=== PATIENT | male | born 1950 | race Native Hawaiian/Other Pacific Islander ===

== ENCOUNTER 2021-04-25 15:12 | Inpatient (IN) | payer MEDICARE ==
--- NOTE | 2021-04-25 15:21 | Emergency Department Report ---
Blank Doc - Documentation Documentation: 70-year-old male that presents with right-sided weakness with numbness sensation and slight facial drooping to the right side. Patient stated last known well time was 10 AM. 1- This is a initial triage assessment/medical screening only. Full assessment and work-up will be completed once the patient is in proper hospital gown, ED bed and in a private room setting. This initial assessment/diagnostic orders/clinical plan/ treatment(s) is/are subject to change based on pt's health status, clinical progression and re-assessment by fellow clinical providers in the ED. Further treatment and workup at subsequent clinical providers discretion. Patient/guardians urged not to elope from ED as their condition may be serious if not clinically assessed and managed. 2-stroke protocol initiated
--- NOTE | 2021-04-25 15:44 | Cat Scan Report ---
CT head/brain wo con INDICATION / CLINICAL INFORMATION: 70 years Male; CODE STROKE CALL [phone] . TECHNIQUE: Routine CT head without contrast. All CT scans at this location are performed using CT dos e reduction for ALARA by means of automated exposure control. COMPARISON: None. FINDINGS: BRAIN / INTRACRANIAL CONTENTS: Small lacunar infarct is seen in the lentiform nucleus on the left. Otherwise, no acute hemorrhage, mass effect, midline shift, hydrocephalus, or acute, large territori al infarct. No signs of significant atrophy or chronic infarct. No significant white matter abnormali ty seen. CRANIOCERVICAL JUNCTION: No significant abnormality. ORBITS: No significant abnormality of visualized orbits. SINUSES / MASTOIDS: Visualized paranasal sinuses and mastoid air cells are essentially clear. ADDITIONAL FINDINGS: None. IMPRESSION: 1. No focal mass, hemorrhage, hydrocephalus, or acute, large territorial infarct. CODE STROKE: Exam Completed (SUPERVISOR WHIPPED TOPPING/CDT): 04/25/2021 229 PM Exam Reviewed (SUPERVISOR WHIPPED TOPPING/CDT): 2:32 PM Time of Communication (SUPERVISOR WHIPPED TOPPING/CDT): 2:37 PM Licensed Practitioner Receiving Report: ROSEY De Jesus Signer Name: Morris Fontanez MD, III Signed: 04/25/2021 3:39 PM Workstation Name: [id number]
--- NOTE | 2021-04-25 15:50 | Event Note ---
Date: 04/25/21 Medical screening examination note: 70-year-old gentleman presenting with strokelike symptoms, including sensation of right-sided facial droop, right facial numbness, right arm numbness and right leg numbness. Last known well time 10:00 AM. Accu-Chek 401/appreciated. Noncontrast CT scan of the brain negative for acute findings. Patient awake, alert, oriented, with a GCS of 15. He will be seen shortly by stroke neurology, Dr. Dee Dee Ford We did discuss his history, physical, and overall clinical impression. CT angiogram head and neck is recommended. The patient is not a TPA candidate as he presents more than 4.5 hours after his last known well time.
[2021-04-25 16:11] LABS: Basophils % (Auto) 0.5 % (0.0-1.8); Eosinophils # (Auto) 0.1 K/mm3 (0.0-0.4); Eosinophils % (Auto) 1.8 % (0.0-4.3); Hematocrit 41.2 % (35.5-45.6); Hemoglobin 14.3 gm/dl (11.8-15.2); Lymphocytes # (Auto) 1.8 K/mm3 (1.2-5.4); Mean Corpuscular HGB Conc 35 % (32-34); Mean Corpuscular Volume 93 fl (84-94); Monocytes # (Auto) 0.6 K/mm3 (0.0-0.8); Monocytes % (Auto) 10.6 % (0.0-7.3); Platelet Count 182 K/mm3 (140-440); Red Blood Count 4.43 M/mm3 (3.65-5.03); Red Cell Distribution Width 13.4 % (13.2-15.2)
--- NOTE | 2021-04-25 16:18 | Emergency Department Report ---
ED Neuro Deficit HPI - General Chief Complaint: Neuro Symptoms/Deficit Stated Complaint: POSS STROKE Time Seen by Provider: 04/25/21 15:19 Source: patient Mode of arrival: Ambulatory Limitations: No Limitations - History of Present Illness Initial Comments: Patient is 70 years old male with history of hypertension and diabetes. Patient presented to the ER complaining of sudden onset of right facial droop right upper extremity numbness and right lower extremity weakness. Patient stated that symptoms started approximately 10 AM today. Patient stated that his symptom is much better now. Stroke protocol immediately initiated and patient moved to CT for stat CT brain without contrast. Telemetry neurology consulted and Dr. Anton, discussed the patient with Dr. Ford. Patient is not a TPA candidate however he recommended a CT angiogram of the brain and neck. Patient stated that initially his blood sugar was high and he thought this is from that. Patient denied any slurred speech, ataxia, chest pain, shortness of breath, nausea vomiting or headache. . -: Sudden, This morning Time: 10:00 Location: right face, right arm, right leg Presenting Symptoms: Present: Weak/Paralyzed One Side, Facial Droop/Numbness History of same: No Place: home Context: sudden onset Associated Symptoms: denies other symptoms ED Review of Systems ROS: Stated complaint: POSS STROKE Other details as noted in HPI Comment: All other systems reviewed and negative Constitutional: denies: chills, fever Respiratory: denies: cough, shortness of breath, SOB with exertion, SOB at rest Cardiovascular: denies: chest pain, palpitations Gastrointestinal: denies: abdominal pain, nausea, vomiting Genitourinary: denies: urgency, dysuria Musculoskeletal: denies: back pain Neurological: weakness, numbness. denies: headache, paresthesias, confusion, abnormal gait ED Neuro Physical Exam - General Limitations: No Limitations General appearance: alert, in no apparent distress Suspected Stroke: Yes - Head Head exam: Present: atraumatic, normocephalic, normal inspection - Eye Eye exam: Present: normal appearance, PERRL - ENT ENT exam: Present: normal exam, normal orophraynx, mucous membranes moist - Neck Neck exam: Present: normal inspection, full ROM. Absent: tenderness, meningismus - Respiratory Respiratory exam: Present: normal lung sounds bilaterally - Cardiovascular Cardiovascular Exam: Present: regular rate, normal rhythm, normal heart sounds - GI/Abdominal GI/Abdominal exam: Present: soft, normal bowel sounds. Absent: distended, tenderness, guarding, rebound, rigid, organomegaly, mass, bruit, pulsatile mass, hernia - Extremities Exam Extremities exam: Present: normal inspection, full ROM, normal capillary refill. Absent: tenderness, pedal edema, joint swelling, calf tenderness - Back Exam Back exam: Present: normal inspection, full ROM. Absent: CVA tenderness (R), CVA tenderness (L) - Neurological Exam Neurological exam: Present: alert, oriented X3 - NIHSS Assessment Interval: Baseline 1a. Level of Consciousness: alert/keenly responsive 1b. LOC Questions: answers both correctly 1c. LOC Commands: performs tasks correctly 2. Best Gaze: normal 3. Visual: no visual loss 4. Facial Palsy: minor paralysis 5b. Motor Arm Right: no drift 5a. Motor Arm Left: no drift 6a. Motor Leg Left: no drift 6b. Motor Leg Right: no drift 7. Limb Ataxia: absent 8. Sensory: mild/moderate sensory loss 9. Best Language: no aphasia 10. Dysarthria: normal 11. Extinction/Inattention: no abnormality Total Score: 2 Stroke Severity: Minor Stroke - Psychiatric Psychiatric exam: Present: normal mood - Skin Skin exam: Present: warm, intact, normal color ED Course Vital Signs 04/25/21 04/25/21 04/25/21 15:23 15:45 16:01 Temperature 98.8 F Pulse Rate 86 82 80 Respiratory 18 15 14 Rate Blood Pressure 167/90 Blood Pressure 196/103 [Left] O2 Sat by Pulse 96 96 98 Oximetry 04/25/21 04/25/21 04/25/21 16:15 16:31 16:45 Temperature Pulse Rate 82 Respiratory 20 Rate Blood Pressure 172/74 161/89 145/94 Blood Pressure [Left] O2 Sat by Pulse 90 96 97 Oximetry 04/25/21 04/25/21 17:01 17:15 Temperature Pulse Rate Respiratory Rate Blood Pressure 152/84 164/86 Blood Pressure [Left] O2 Sat by Pulse 95 93 Oximetry - Lab Data Result diagrams: 04/25/21 15:40 04/25/21 15:40 Lab Results 04/25/21 04/25/21 04/25/21 Range/Units 15:18 15:40 15:40 WBC 5.4 (4.5-11.0) K/mm3 RBC 4.43 (3.65-5.03) M/mm3 Hgb 14.3 (11.8-15.2) gm/dl Hct 41.2 (35.5-45.6) % MCV 93 (84-94) fl MCH 32 (28-32) pg MCHC 35 H (32-34) % RDW 13.4 (13.2-15.2) % Plt Count 182 (140-440) K/mm3 Lymph % (Auto) 33.0 (13.4-35.0) % Caswell % (Auto) 10.6 H (0.0-7.3) % Eos % (Auto) 1.8 (0.0-4.3) % Baso % (Auto) 0.5 (0.0-1.8) % Lymph # (Auto) 1.8 (1.2-5.4) K/mm3 Caswell # (Auto) 0.6 (0.0-0.8) K/mm3 Eos # (Auto) 0.1 (0.0-0.4) K/mm3 Baso # (Auto) 0.0 (0.0-0.1) K/mm3 Seg Neutrophils % 54.1 (40.0-70.0) % Seg Neutrophils # 2.9 (1.8-7.7) K/mm3 PT 12.1 L (12.2-14.9) Sec. INR 0.85 L (0.87-1.13) APTT 28.3 (24.2-36.6) Sec. Thrombin Time 18.5 (15.1-19.6) Sec. Sodium (137-145) mmol/L Potassium (3.6-5.0) mmol/L Chloride (98-107) mmol/L Carbon Dioxide (22-30) mmol/L Anion Gap mmol/L BUN (9-20) mg/dL Creatinine (0.8-1.3) mg/dL Estimated GFR ml/min BUN/Creatinine Ratio % Glucose (75-100) mg/dL POC Glucose 401 H (70-105) mg/dL Calcium (8.4-10.2) mg/dL Magnesium (1.7-2.3) mg/dL Total Bilirubin (0.1-1.2) mg/dL AST (5-40) units/L ALT (7-56) units/L Alkaline Phosphatase (35-129) units/L Total Creatine Kinase (55-170) units/L CK-MB (CK-2) (0.0-4.0) ng/mL CK-MB (CK-2) Rel Index (0-4) Troponin T (0.00-0.029) ng/mL Total Protein (6.3-8.2) g/dL Albumin (3.9-5) g/dL Albumin/Globulin Ratio % Plasma/Serum Alcohol (0-0.07) % 04/25/21 04/25/21 Range/Units 15:40 15:40 WBC (4.5-11.0) K/mm3 RBC (3.65-5.03) M/mm3 Hgb (11.8-15.2) gm/dl Hct (35.5-45.6) % MCV (84-94) fl MCH (28-32) pg MCHC (32-34) % RDW (13.2-15.2) % Plt Count (140-440) K/mm3 Lymph % (Auto) (13.4-35.0) % Caswell % (Auto) (0.0-7.3) % Eos % (Auto) (0.0-4.3) % Baso % (Auto) (0.0-1.8) % Lymph # (Auto) (1.2-5.4) K/mm3 Caswell # (Auto) (0.0-0.8) K/mm3 Eos # (Auto) (0.0-0.4) K/mm3 Baso # (Auto) (0.0-0.1) K/mm3 Seg Neutrophils % (40.0-70.0) % Seg Neutrophils # (1.8-7.7) K/mm3 PT (12.2-14.9) Sec. INR (0.87-1.13) APTT (24.2-36.6) Sec. Thrombin Time (15.1-19.6) Sec. Sodium 135 L (137-145) mmol/L Potassium 4.3 (3.6-5.0) mmol/L Chloride 99.1 (98-107) mmol/L Carbon Dioxide 27 (22-30) mmol/L Anion Gap 13 mmol/L BUN 11 (9-20) mg/dL Creatinine 0.6 L (0.8-1.3) mg/dL Estimated GFR > 60 ml/min BUN/Creatinine Ratio 18 % Glucose 424 H (75-100) mg/dL POC Glucose (70-105) mg/dL Calcium 8.9 (8.4-10.2) mg/dL Magnesium 2.20 (1.7-2.3) mg/dL Total Bilirubin 0.50 (0.1-1.2) mg/dL AST 11 (5-40) units/L ALT 15 (7-56) units/L Alkaline Phosphatase 168 H (35-129) units/L Total Creatine Kinase 91 (55-170) units/L CK-MB (CK-2) 1.2 (0.0-4.0) ng/mL CK-MB (CK-2) Rel Index 1.3 (0-4) Troponin T < 0.010 (0.00-0.029) ng/mL Total Protein 7.1 (6.3-8.2) g/dL Albumin 4.1 (3.9-5) g/dL Albumin/Globulin Ratio 1.4 % Plasma/Serum Alcohol < 0.01 (0-0.07) % - EKG Data -: EKG Interpreted by Me Interpretation: no acute changes - Radiology Data Radiology results: report reviewed - Medical Decision Making Patient is 70 years old male with history of hypertension and diabetes. Patient presented to the ER complaining of sudden onset of right facial droop right upper extremity numbness and right lower extremity weakness. Patient stated that symptoms started approximately 10 AM today. Patient stated that his symp ronel is much better now. Stroke protocol immediately initiated and patient moved to CT for stat CT brain without contrast. Telemetry neurology consulted and Dr. Anton, discussed the patient with Dr. Ford. Patient is not a TPA candidate however he recommended a CT angiogram of the brain and neck. Patient stated that initially his blood sugar was high and he thought this is from that. Patient denied any slurred speech, ataxia, chest pain, shortness of breath, nausea vomiting or headache. CTA neck and brain showed no evidence of large vessels occlusion. I discussed the patient with Dr. Enrique, he agreed to admit the patient to medical service for further management. Critical Care Time: Yes Critical care time in (mins) excluding proc time.: 30 Critical care attestation.: If time is entered above; I have spent that time in minutes in the direct care of this critically ill patient, excluding procedure time. ED Disposition Clinical Impression: Acute CVA (cerebrovascular accident) Disposition: -09 OP ADMIT IP TO THIS HOSP Is pt being admited?: Yes Condition: Stable
[2021-04-25 16:26] LABS: INR 0.85 (0.87-1.13); Partial Thromboplastin Time 28.3 Sec. (24.2-36.6); Thrombin Time 18.5 Sec. (15.1-19.6)
[2021-04-25 16:36] LABS: Alanine Aminotransferase 15 units/L (7-56); Albumin 4.1 g/dL (3.9-5); Blood Urea Nitrogen 11 mg/dL (9-20); Calcium 8.9 mg/dL (8.4-10.2); Creatine Kinase MB 1.2 ng/mL (0.0-4.0); Hemolysis Index 8
[2021-04-25 16:38] LABS: BUN/Creatinine Ratio 18
--- NOTE | 2021-04-25 16:54 | Consultation ---
Medications and Allergies Active Meds: Active Medications Insulin Human Regular (Insulin Regular, Human 100 Units/1 Ml) 5 units IV ONCE ONE Stop: 04/25/21 16:39 Physical Examination - Vital Signs Vital Signs: Vital Signs Temp Pulse Resp BP Pulse Ox 98.8 F 86 18 196/103 96 04/25/21 15:23 04/25/21 15:23 04/25/21 15:23 04/25/21 15:23 04/25/21 15:23 Results - Laboratory Findings CBC and BMP: 04/25/21 15:40 04/25/21 15:40 Abnormal Lab Findings: Abnormal Labs 04/25/21 04/25/21 04/25/21 15:18 15:40 15:40 MCHC 35 H Archer % (Auto) 10.6 H PT 12.1 L INR 0.85 L Sodium Creatinine Glucose POC Glucose 401 H Alkaline Phosphatase 04/25/21 15:40 MCHC Archer % (Auto) PT INR Sodium 135 L Creatinine 0.6 L Glucose 424 H POC Glucose Alkaline Phosphatase 168 H Assessment and Plan [facility] Consult Note # Demographics Consult Type: Acute Stroke Level 2 (4.5-24 hrs) Patient Location: Emergency Room First Name: Danny Last Name: Oliiva Date of : 1950 Age: 70 Gender: Male Time of Initial Page ( Time): 04/25/2021, 15:27 Time of Return Call ( Time): 04/25/2021, 15:39 # HPI History: 70 yo man with history of untreated DM presents with right sided numbness and weakness affecting face, hand, leg starting around 10:00 this morning. Symptoms have improved but not entirely resolved. Last Known Normal: I have collected independent history specific to time last normal or last known well. We have collaborated with the provider and at this time, we have the most current timeline with the information that is available. 10:00 # Scores Time of exam and NIHSS ( Time): 04/25/2021, 16:31 Level of Consciousness 1a: [0] = Alert; keenly responsive LOC Questions 1b: [0] = Answers both questions correctly LOC Commands 1c: [0] = Performs both tasks correctly Best Gaze 2: [0] = Normal Visual 3: [0] = No visual loss Facial Palsy 4: [1] = Minor paralysis Motor Arm Left 5a: [0] = No drift Motor Arm Right 5b: [0] = No drift Motor Leg Left 6a: [0] = No drift Motor Leg Right 6b: [0] = No drift Limb Ataxia 7: [0] = Absent Sensory 8: [1] = [id number]-cv-[id number] sensory loss Best Language 9: [0] = No aphasia Dysarthria 10: [1] = Gubx-qr-qbopwpax dysarthria Extinction and Inattention 11: [0] = No abnormality NIHSS Total: 3 # Exam SBP: 161 DBP: 89 # PMH-FH-SH Past Medical History: Diabetes Social History: non-smoker non-drinker Medications: denies Allergies: NKDA # Data Head CT: no bleed small lacunar infarct # Assessment Impression: Right sided numbness and weakness consistent with ischemic stroke. Given time of onset > 4.5 hours ago he is not a candidate for IV tpa. # Plan Thrombolytic/Intervention: NOT IV Thrombolytic or IA Intervention Thrombolytic Exclusion: > 4.5 hours Intraarterial Exclusion: other Symptoms not suggestive of LVO Target Blood Pressure: SBP < 220 Labs: hemoglobin A1c lipid panel Imaging: (urgency: routine): CT Angiogram Head and CT Angiogram Neck MRI Brain without contrast Diagnostic Test: echo with bubble study Therapy/Evaluation: NPO until swallow evaluation PT/OT evaluation speech/swallow consultation Medication: aspirin 81 mg daily clopidogrel (Plavix) 75 mg daily aspirin 81 mg PLUS clopidogrel (Plavix) 75 mg for 21 days, then monotherapy therafter DVT Prophylaxis: SCD Other: LDL < 70 permissive hypertension telemetry monitoring I have discussed my recommendations with the referring provider Disposition: admit # Logistics Telemedicine: Interactive 2 way audio and visual telecommunication technology was utilized during this visit
--- NOTE | 2021-04-25 18:32 | Cat Scan Report ---
CTA NECK WITH CONTRAST 04/25/2021 INDICATION / CLINICAL INFORMATION: Acute stroke, right-sided facial numbness, right a 100 ml omni 350 . COMPARISON: None. TECHNIQUE: Routine CTA of the neck is performed. 3-D/MIP reformats were postprocessed. Percentage st enosis is determined by direct quantitative measurements of diseased internal carotid artery diameter compared with normal distal internal carotid artery reference segments or by criteria similar to QUE CET where applicable. All CT scans at this location are performed using CT dose reduction for ALARA b y means of automated exposure control. CONTRAST: 100 ml of Omnipaque 350 FINDINGS: Carotid bifurcations: Atherosclerotic vascular calcifications are associated with the carotid bifurca tions, left greater than right. There may be tendon 20% narrowing of the left proximal ICA. The right is unremarkable. Carotid arteries: No significant abnormality. Cervical vertebral arteries: No significant abnormality. Aortic arch: No significant abnormality. None. IMPRESSION: No significant abnormality. Signer Name: Doe Luciano MD Signed: 04/25/2021 6:28 PM Workstation Name: [id number]
--- NOTE | 2021-04-25 18:36 | Cat Scan Report ---
CTA HEAD WITH CONTRAST 04/25/2021 HISTORY: Acute stroke, right-sided facial numbness, right a 100ml omni 350 . COMPARISON: None. TECHNIQUE: All CT scans at this location are performed using CT dose reduction for ALARA by means of automated exposure control.. 3-D/MIP reformats postprocessed. Percentage stenosis is determined by d irect quantitative measurements of diseased internal carotid artery diameter compared with normal dis mahad internal carotid artery reference segments or by criteria similar to NASCET where applicable. CONTRAST: 100 ml of Omnipaque 350 FINDINGS: CTA HEAD: Intracranial vertebral arteries: There is prominent atherosclerotic irregularity associated with the distal left vertebral artery, which is either congenitally hypoplastic or occluded at or near the lev el of the origin of the posterior inferior cerebellar artery. Basilar artery: Mild atherosclerotic irregularity. Posterior cerebral arteries: Mild to moderate atherosclerotic irregularity. Intracranial internal carotid arteries: Atherosclerotic calcification with no evidence of occlusion. Moderate segmental stenosis. Anterior cerebral arteries: No significant abnormality. Middle cerebral arteries: Atherosclerotic irregularity and narrowing of the left middle cerebral milla ry and its proximal branches. There is also evidence of high-grade stenosis or partial occlusion of o ne of the right middle cerebral artery M1 branches. Dural venous sinuses:Not optimally opacified. No significant abnormality. Additional findings: None. IMPRESSION: 1. Intracranial atherosclerotic changes as described above, involving MCA branches as well as distal left vertebral artery. Signer Name: Doe Luciano MD Signed: 04/25/2021 6:32 PM Workstation Name: [id number]
--- NOTE | 2021-04-25 18:52 | History and Physical Report ---
History of Present Illness Chief complaint: I feel weak on my right side History of present illness: 70 YO Male with DM, HTN presents to ED for evaluation. Patient reports "I feel weak on the right side". Patient states that he was in his usual state of health at bedtime around 2200 hrs. Patient reports that shortly after awakening from sleep this morning 1800 hrs. he experienced new onset right-sided facial droop, right arm and leg weakness. Patient transported to [facility] via private vehicle for further care and evaluation of the aforementioned symptoms. The patient was seen and evaluated in the emergency department. All lab and imaging studies reviewed. Patient was found to have a neurologic deficit. A code stroke was called. The patient was seen and evaluated and was found to have clinical symptoms consistent with CVA. The patient was placed in observation status and admitted to telemetry for further care and evaluation. Teleneurology was consulted in ED. Patient denies fever, chills, chest pain, palpitation, productive cough, skin rash, recent ill contacts, or known exposure to COVID-19. No prior admission for review. No medication listed for reconciliation at the time of admission. Advanced care planning conducted in ED. Past History Past Medical History: diabetes, hypertension Past Surgical History: No surgical history, Other (Reviewed) Social history: , lives with family Family history: hypertension Medications and Allergies Active Meds: Active Medications Insulin Human Regular (Insulin Regular, Human 100 Units/1 Ml) 5 units IV ONCE ONE Stop: 04/25/21 16:39 Review of Systems Constitutional: no weight loss, no weight gain, no fever, no sweats Ears, nose, mouth and throat: no ear pain, no ear discharge, no nasal discharge Cardiovascular: no chest pain, no orthopnea, no palpitations, no rapid/irregular heart beat, no edema, no syncope, no shortness of breath Respiratory: no cough, no cough with sputum, no excessive sputum, no hemoptysis, no dyspnea on exertion Gastrointestinal: no abdominal pain, no nausea, no vomiting, no diarrhea, no constipation Genitourinary Male: no hematuria, no flank pain, no discharge, no urinary frequency, no urinary hesitancy Rectal: no pain, no incontinence, no bleeding Musculoskeletal: no neck stiffness, no neck pain, no shooting arm pain, no low back pain, no leg numbness/tingling, no redness of joints Integumentary: no rash, no pruritis, no redness, no sores, no wounds Neurological: numbness, lack of coordination, change in speech, gait dysfunction, motor disturbance, no head injury, no transient paralysis, no vertigo, no headaches, no migraines Psychiatric: no anxiety, no memory loss, no change in sleep habits, no sleep disturbances, no insomnia, no hypersomnia, no change in libido Endocrine: no cold intolerance, no heat intolerance, no polyphagia, no excessive thirst, no polyuria Hematologic/Lymphatic: no easy bruising, no easy bleeding, no lymphedema Allergic/Immunologic: no urticaria, no allergic rhinitis, no anaphylaxis Exam - Constitutional Vitals: Temp Pulse Resp BP Pulse Ox 98.8 F 82 20 164/86 93 04/25/21 15:23 04/25/21 16:15 04/25/21 16:15 04/25/21 17:15 04/25/21 17:15 General appearance: Present: mild distress - EENT Eyes: Present: PERRL ENT: hearing intact, clear oral mucosa - Neck Neck: Present: supple, normal ROM - Respiratory Respiratory effort: normal Respiratory: bilateral: CTA - Cardiovascular Heart Sounds: Present: S1 & S2. Absent: rub, click - Extremities Extremities: pulses symmetrical, No edema Peripheral Pulses: within normal limits - Abdominal General gastrointestinal: Present: soft, non-tender, non-distended, normal bowel sounds Male genitourinary: Present: normal - Integumentary Integumentary: Present: clear, warm, dry - Musculoskeletal Musculoskeletal: right sided weakness - Psychiatric Psychiatric: appropriate mood/affect, intact judgment & insight - Neurologic Neurologic: no CNII-XII intact, focal deficits, moves all extremities, no gait normal HEART Score - HEART Score Troponin: Troponin T < 0.010 ng/mL (0.00-0.029) 04/25/21 15:40 Results - Labs CBC & Chem 7: 04/25/21 15:40 04/25/21 15:40 Labs: Abnormal lab results 04/25/21 04/25/21 04/25/21 Range/Units 15:18 15:40 15:40 MCHC 35 H (32-34) % [place] % (Auto) 10.6 H (0.0-7.3) % PT 12.1 L (12.2-14.9) Sec. INR 0.85 L (0.87-1.13) Sodium (137-145) mmol/L Creatinine (0.8-1.3) mg/dL Glucose (75-100) mg/dL POC Glucose 401 H (70-105) mg/dL Alkaline Phosphatase (35-129) units/L /04/10 Range/Units 15:40 MCHC (32-34) % [place] % (Auto) (0.0-7.3) % PT (12.2-14.9) Sec. INR (0.87-1.13) Sodium 135 L (137-145) mmol/L Creatinine 0.6 L (0.8-1.3) mg/dL Glucose 424 H (75-100) mg/dL POC Glucose (70-105) mg/dL Alkaline Phosphatase 168 H (35-129) units/L Assessment and Plan - Patient Problems (1) CVA (cerebral vascular accident) Current Visit: Yes Status: Acute Plan to address problem: CVA protocol: CT head, neuro check, seizure precautions, aspiration precautions, fall precautions, lipid panel, antiplatelet therapy, telemetry neurology con sulted in the emergency department., Statin therapy, carotid Doppler, echocardiogram, (2) HTN (hypertension) Current Visit: Yes Status: Acute Qualifiers: Hypertension type: primary hypertension Qualified Code(s): I10 - Essential (primary) hypertension Plan to address problem: Monitor blood pressure every shift, permissive hypertension overnight (3) Diabetes Current Visit: Yes Status: Acute Plan to address problem: Consistent carbohydrate diet after patient has demonstrated ability to swallow, sliding scale insulin, Accu-Chek, hypoglycemia protocol. (4) DVT prophylaxis Current Visit: Yes Status: Acute Plan to address problem: SCD to bilateral lower extremities while in bed, patient is ambulatory (5) Advance care planning Current Visit: Yes Status: Acute Plan to address problem: Disease education conducted, care plan discussed, diagnosis discussed, prognosis discussed, patient is full code, patient knowledges understanding and agree with care plan, +30 minutes.
[2021-04-25] MEDS ORDERED: METOCLOPRAMIDE 10 MG TAB PO PRN (20:00)
[2021-04-25] MEDS ORDERED: INSULIN REGULAR, HUMAN 100 UNITS/1 ML IV ONE (20:00)
[2021-04-25] MEDS ORDERED: MAGNESIUM HYDROXIDE (MOM) ORAL LIQD UDC PO PRN (20:00)
[2021-04-25] MEDS ORDERED: MORPHINE 4 MG/1 ML INJ IV PRN (20:00)
[2021-04-25] MEDS ORDERED: PROMETHAZINE 25 MG RECT SUPP PR PRN (20:00)
[2021-04-25] MEDS ORDERED: ONDANSETRON 4 MG/2 ML INJ IV PRN (20:00)
[2021-04-25] MEDS ORDERED: ACETAMINOPHEN 325 MG TAB PO PRN (20:00)
--- NOTE | 2021-04-26 09:04 | Progress Note ---
Assessment and Plan Assessment and plan: Acute CVA/TIA Hypertension Diabetes mellitus type 2 DVT prophylaxis 04/26/2021. Pt with Right sided numbness and weakness consistent with ischemic stroke. Given time of onset > 4.5 hours ago he was not a candidate for IV tpa. F/U Echocardiogram, Carotid Duplex, MRI and Neuro consult. PT/OT/ST. History Interval history: No new issues overnight Hospitalist Physical - Constitutional Vitals: Temp Pulse Resp BP Pulse Ox 98.1 F 75 18 160/80 95 04/26/21 07:47 04/26/21 07:47 04/26/21 07:47 04/26/21 07:47 04/26/21 07:47 General appearance: Present: mild distress - EENT Eyes: Present: PERRL, EOM intact ENT: hearing intact, clear oral mucosa, dentition normal - Neck Neck: Present: supple, normal ROM - Respiratory Respiratory effort: normal Respiratory: bilateral: CTA - Cardiovascular Rhythm: regular Heart Sounds: Present: S1 & S2. Absent: gallop, rub - Extremities Extremities: no ischemia, No edema, Full ROM - Abdominal General gastrointestinal: soft, non-tender, non-distended, normal bowel sounds - Integumentary Integumentary: Present: clear, warm, dry - Neurologic Neurologic: CNII-XII intact, moves all extremities HEART Score - HEART Score Troponin: Troponin T < 0.010 ng/mL (0.00-0.029) 04/25/21 15:40 Results - Labs CBC & Chem 7: 04/25/21 15:40 04/25/21 15:40 Labs: Laboratory Last Values WBC 5.4 K/mm3 (4.5-11.0) 04/25/21 15:40 RBC 4.43 M/mm3 (3.65-5.03) 04/25/21 15:40 Hgb 14.3 gm/dl (11.8-15.2) 04/25/21 15:40 Hct 41.2 % (35.5-45.6) 04/25/21 15:40 MCV 93 fl (84-94) 04/25/21 15:40 MCH 32 pg (28-32) 04/25/21 15:40 MCHC 35 % (32-34) H 04/25/21 15:40 RDW 13.4 % (13.2-15.2) 04/25/21 15:40 Plt Count 182 K/mm3 (140-440) 04/25/21 15:40 Lymph % (Auto) 33.0 % (13.4-35.0) 04/25/21 15:40 [place] % (Auto) 10.6 % (0.0-7.3) H 04/25/21 15:40 Eos % (Auto) 1.8 % (0.0-4.3) 04/25/21 15:40 Baso % (Auto) 0.5 % (0.0-1.8) 04/25/21 15:40 Lymph # (Auto) 1.8 K/mm3 (1.2-5.4) 04/25/21 15:40 [place] # (Auto) 0.6 K/mm3 (0.0-0.8) 04/25/21 15:40 Eos # (Auto) 0.1 K/mm3 (0.0-0.4) 04/25/21 15:40 Baso # (Auto) 0.0 K/mm3 (0.0-0.1) 04/25/21 15:40 Seg Neutrophils % 54.1 % (40.0-70.0) 04/25/21 15:40 Seg Neutrophils # 2.9 K/mm3 (1.8-7.7) 04/25/21 15:40 PT 12.1 Sec. (12.2-14.9) L 04/25/21 15:40 INR 0.85 (0.87-1.13) L 04/25/21 15:40 APTT 28.3 Sec. (24.2-36.6) 04/25/21 15:40 Thrombin Time 18.5 Sec. (15.1-19.6) 04/25/21 15:40 Sodium 135 mmol/L (137-145) L 04/25/21 15:40 Potassium 4.3 mmol/L (3.6-5.0) 04/25/21 15:40 Chloride 99.1 mmol/L (98-107) 04/25/21 15:40 Carbon Dioxide 27 mmol/L (22-30) 04/25/21 15:40 Anion Gap 13 mmol/L 04/25/21 15:40 BUN 11 mg/dL (9-20) 04/25/21 15:40 Creatinine 0.6 mg/dL (0.8-1.3) L 04/25/21 15:40 Estimated GFR > 60 ml/min 04/25/21 15:40 BUN/Creatinine Ratio 18 % 04/25/21 15:40 Glucose 424 mg/dL (75-100) H 04/25/21 15:40 POC Glucose 281 mg/dL (70-105) H 04/26/21 07:46 Calcium 8.9 mg/dL (8.4-10.2) 04/25/21 15:40 Magnesium 2.20 mg/dL (1.7-2.3) 04/25/21 15:40 Total Bilirubin 0.50 mg/dL (0.1-1.2) 04/25/21 15:40 AST 11 units/L (5-40) 04/25/21 15:40 ALT 15 units/L (7-56) 04/25/21 15:40 Alkaline Phosphatase 168 units/L (35-129) H 04/25/21 15:40 Total Creatine Kinase 91 units/L (55-170) 04/25/21 15:40 CK-MB (CK-2) 1.2 ng/mL (0.0-4.0) 04/25/21 15:40 CK-MB (CK-2) Rel Index 1.3 (0-4) 04/25/21 15:40 Troponin T < 0.010 ng/mL (0.00-0.029) 04/25/21 15:40 Total Protein 7.1 g/dL (6.3-8.2) 04/25/21 15:40 Albumin 4.1 g/dL (3.9-5) 04/25/21 15:40 Albumin/Globulin Ratio 1.4 % 04/25/21 15:40 Plasma/Serum Alcohol < 0.01 % (0-0.07) 04/25/21 15:40 Herrera/IV: Voiding Method Urinal Active Medications - Current Medications Current Medications: Generic Name Dose Route Start Last Admin Trade Name Freq PRN Reason Stop Dose Admin Acetaminophen 650 mg 04/25/21 20:00 Acetaminophen 325 Mg Tab PO Q4H PRN Pain, Mild (1-3) Atorvastatin Calcium 40 mg 04/25/21 22:00 04/25/21 22:15 Atorvastatin 40 Mg Tab PO 40 mg QHS LILLIAN Administration Bisacodyl 10 mg 04/25/21 20:00 Bisacodyl 10 Mg Rect Supp VT QDAY PRN Constipation Magnesium Hydroxide 30 ml 04/25/21 20:00 Magnesium Hydroxide (Mom) Oral Liqd Udc PO Q4H PRN Constipation Metoclopramide HCl 10 mg 04/25/21 20:00 Metoclopramide 10 Mg Tab PO Q6H PRN Nausea And Vomiting Morphine Sulfate 1 mg 04/25/21 20:00 Morphine 4 Mg/1 Ml Inj IV Q8H PRN Pain , Severe (7-10) Ondansetron HCl 4 mg 04/25/21 20:00 Ondansetron 4 Mg/2 Ml Inj IV Q8H PRN Nausea And Vomiting Oxycodone/Acetaminophen 1 tab 04/25/21 20:00 Oxycodone /Acetaminophen 5-325mg Tab PO Q6H PRN Pain, Moderate (4-6) Promethazine HCl 25 mg 04/25/21 20:00 Promethazine 25 Mg Rect Supp VT Q6H PRN Nausea And Vomiting Sodium Chloride 10 ml 04/25/21 20:00 Sodium Chloride 0.9% 10 Ml Flush Syringe IV PRN PRN LINE FLUSH
--- NOTE | 2021-04-26 09:25 | Consultation ---
History of Present Illness Consult date: 04/26/21 Reason for Consult: right side weakness History of present illness: I feel weak on my right side History of present illness: 70 YO Male with DM, HTN presents to ED for evaluation. Patient reports "I feel weak on the right side". Patient states that he was in his usual state of health at bedtime around 2200 hrs04/24/2021 . Patient reports that shortly after awakening from sleep this morning at 10 am he felt weak right side . Patient transported to [facility] via private vehicle for further care and evaluation of the af orementioned symptoms. The patient was seen and evaluated in the emergency department around 4.30 pm on 04/25/2021 by tele neurology his INH was #3 All lab and imaging studies reviewed. Patient was found to have right side weakness involve arm and leg with facial droop as well as sensory impairment and slurrend speech , A code stroke was called. Patient denies fever, chills, chest pain, palpitation, productive cough, skin rash, recent ill contacts, or known exposure to COVID-19. No prior admission for review. No medication listed for reconciliation at the time of admission. Advanced care planning conducted in ED. -Ct brain was unremarkable - he was started on ASA and lipitor -Initial BP #190/82 CTA brain and neck are remarkable for mild astherosclerotic changes in both MCA and distal vertebral a. pt. is not felt to be a candidate for TPA nor thrombectomy Past History Past Medical History: diabetes, hypertension Past Surgical History: No surgical history, Other (Reviewed) Social history: , lives with family Family history: hypertension Medications and Allergies Active Meds: Active Medications Insulin Human Regular (Insulin Regular, Human 100 Units/1 Ml) 5 units IV ONCE ONE Stop: 04/25/21 16:39 Review of Systems Constitutional: no weight loss, no weight gain, no fever, no sweats Ears, nose, mouth and throat: no ear pain, no ear discharge, no nasal discharge Cardiovascular: no chest pain, no orthopnea, no palpitations, no rapid/irregular heart beat, no edema, no syncope, no shortness of breath Respiratory: no cough, no cough with sputum, no excessive sputum, no hemoptysis, no dyspnea on exertion Gastrointestinal: no abdominal pain, no nausea, no vomiting, no diarrhea, no constipation Genitourinary Male: no hematuria, no flank pain, no discharge, no urinary frequency, no urinary hesitancy Rectal: no pain, no incontinence, no bleeding Musculoskeletal: no neck stiffness, no neck pain, no shooting arm pain, no low back pain, no leg numbness/tingling, no redness of joints Integumentary: no rash, no pruritis, no redness, no sores, no wounds Neurological: numbness, lack of coordination, change in speech, gait dysfunction, motor disturbance, no head injury, no transient paralysis, no vertigo, no headaches, no migraines Psychiatric: no anxiety, no memory loss, no change in sleep habits, no sleep disturbances, no insomnia, no hypersomnia, no change in libido Endocrine: no cold intolerance, no heat intolerance, no polyphagia, no excessive thirst, no polyuria Hematologic/Lymphatic: no easy bruising, no easy bleeding, no lymphedema Allergic/Immunologic: no urticaria, no allergic rhinitis, no anaphylaxis Past History Past Medical History: diabetes, hypertension Past Surgical History: No surgical history, Other (Reviewed) Social history: , lives with family Family history: hypertension Medications and Allergies Allergies Allergy/AdvReac Type Severity Reaction Status Date / Time No Known Allergies Allergy Unverified 04/25/21 19:04 Home Medications Medication Instructions Recorded Confirmed Last Taken Type No Known Home Medications [No 04/25/21 04/25/21 Unknown History Reported Home Medications] Active Meds: Active Medications Acetaminophen (Acetaminophen 325 Mg Tab) 650 mg PO Q4H PRN PRN Reason: Pain, Mild (1-3) Atorvastatin Calcium (Atorvastatin 40 Mg Tab) 40 mg PO QHS LILLIAN Last Admin: 04/25/21 22:15 Dose: 40 mg Documented by: Bisacodyl (Bisacodyl 10 Mg Rect Supp) 10 mg NC QDAY PRN PRN Reason: Constipation Magnesium Hydroxide (Magnesium Hydroxide (Mom) Oral Liqd Udc) 30 ml PO Q4H PRN PRN Reason: Constipation Metoclopramide HCl (Metoclopramide 10 Mg Tab) 10 mg PO Q6H PRN PRN Reason: Nausea And Vomiting Morphine Sulfate (Morphine 4 Mg/1 Ml Inj) 1 mg IV Q8H PRN PRN Reason: Pain , Severe (7-10) Ondansetron HCl (Ondansetron 4 Mg/2 Ml Inj) 4 mg IV Q8H PRN PRN Reason: Nausea And Vomiting Oxycodone/Acetaminophen (Oxycodone /Acetaminophen 5-325mg Tab) 1 tab PO Q6H PRN PRN Reason: Pain, Moderate (4-6) Promethazine HCl (Promethazine 25 Mg Rect Supp) 25 mg NC Q6H PRN PRN Reason: Nausea And Vomiting Sodium Chloride (Sodium Chloride 0.9% 10 Ml Flush Syringe) 10 ml IV PRN PRN PRN Reason: LINE FLUSH Physical Examination - Vital Signs Vital Signs: Vital Signs Temp Pulse Resp BP Pulse Ox 98.8 F 86 18 196/103 96 04/25/21 15:23 04/25/21 15:23 04/25/21 15:23 04/25/21 15:23 04/25/21 15:23 - Constitutional General appearance: comfortable - EENT EENT: Present: PERRL, mucous membranes moist - Respiratory Respiratory: Present: chest non-tender, lungs clear, rhonchi - Cardiovascular Cardiovascular: Present: regular rate, normal S1, normal S2 Extremities: Present: no peripheral edema bilatateraly, no clubbing, cyanosis - Gastrointestinal Gastrointestinal: Present: normoactive bowel sounds - Integumentary Integumentary: Present: normal - Neurologic Cranial nerve examination: PERRL, EOMI, other (right facail droop no visual deficit ,EOMI , facial sensation intact ) Speech examination: other (slightly slurred speech ) Sensorimotor examination: other (right side weakness upper and lower 4-/5 with slight sensory impairment upper and lower ,gait not done) - Level of Consciousness 1a. Level of Consciousness: alert/keenly responsive - LOC Questions 1b. LOC Questions: answers both correctly - LOC Command 1c. LOC Commands: performs tasks correctly - Best Gaze 2. Best Gaze: normal - Visual 3. Visual: no visual loss - Facial Palsy 4. Facial Palsy: partial paralysis - Motor Arm 5a. Motor Arm Left: no drift 5b. Motor Arm Right: drift - Motor Leg 6a. Motor Leg Left: no drift 6b. Motor Leg Right: drift - Limb Ataxia 7. Limb Ataxia: present 1 limb - Sensory 8. Sensory: mild/moderate sensory loss - Best Language 9. Best Language: no aphasia - Dysarthria 10. Dysarthria: mild/moderate dysarthria - Extinction and Inattention 11. Extinction/Inattention: no abnormality - Scoring Total Score: 7 Stroke Severity: Moderate Stroke Results - Laboratory Findings CBC and BMP: 04/25/21 15:40 04/25/21 15:40 Abnormal Lab Findings: Abnormal Labs 04/25/21 04/25/21 04/25/21 15:18 15:40 15:40 MCHC 35 H [place] % (Auto) 10.6 H PT 12.1 L INR 0.85 L Sodium Creatinine Glucose POC Glucose 401 H Alkaline Phosphatase 04/25/21 04/25/21 04/26/21 15:40 21:08 00:04 MCHC [place] % (Auto) PT INR Sodium 135 L Creatinine 0.6 L Glucose 424 H POC Glucose 227 H 212 H Alkaline Phosphatase 168 H 04/26/21 07:46 MCHC [place] % (Auto) PT INR Sodium Creatinine Glucose POC Glucose 281 H Alkaline Phosphatase Assessment and Plan Assessment and Plan - Patient Problems # CVA (cerebral vascular accident) -this is 70 ys old male with new onset right side weakness involve face arm and leg with possible slight dysmetria right arm and sensory impairment and or dysarthia with posibility of brain stem involvment can not be excluded -pt. is out of window for TPA and or thrombectomy -CT brain is unremarkable -CTA remarkable for mild astherosclerotic changes in MCA and vertebral a. -Initial NIH#3-- current NIh#7 -Echo EF#[id number]% -A1C# pending -LDL# pending -Start on ASA 325 mg and Lipitor 40 mg -PT.ST evaluate -MRI is pending -If brain stem involved consider adding Plavix X 3 months 75 mg # HTN (hypertension) -Monitor blood pressure every shift, - permissive hypertension X24 hours # Diabetes -Consistent carbohydrate diet after patient has demonstrated ability to swallow, - sliding scale insulin, - Accu-Chek, -hypoglycemia protocol. # DVT prophylaxis -SCD to bilateral lower extremities while in bed, patient is ambulatory # Advance care planning -Disease education conducted, -care plan discussed, -diagnosis discussed, - prognosis discussed, patient is full code, - patient knowledges understanding and agree with care plan, 45 minutes. Will follow
[2021-04-26] MEDS: INSULIN REGULAR, HUMAN 100 UNITS/1 ML SUB-Q SCH ×3 (12:48→21:36)
[2021-04-26] MEDS ORDERED: ASPIRIN EC 325 MG TAB PO SCH (13:00)
--- NOTE | 2021-04-26 14:09 | Vascular Lab Report ---
DUPLEX DOPPLER ULTRASOUND CAROTID, BILATERAL INDICATION / CLINICAL INFORMATION: Stroke. COMPARISON: CTA neck 04/25/2021. FINDINGS: RIGHT CAROTID: A small amount of calcified plaque is visualized within the bulb, proximal ECA and pro ximal ICA. - PLAQUE ESTIMATE (%): < 50% - CCA velocity: 122 cm/sec. - ICA peak systolic velocity: 109 cm/sec. - ICA/CCA PSV Ratio: Less than 2. Right Vertebral Artery: Antegrade flow. LEFT CAROTID: Small amount of calcified and noncalcified plaque is present within the bulb, extending into proximal ICA. - PLAQUE ESTIMATE (%): < 50% - CCA velocity: 103 cm/sec. - ICA peak systolic velocity: 72 cm/sec. - ICA/CCA PSV Ratio: Less than 2. Left Vertebral Artery: Antegrade flow. IMPRESSION: 1. Right Internal Carotid Artery: Less than 50% diameter stenosis. 2. Left Internal Carotid Artery: Less than 50% diameter stenosis. Velocity criteria are extrapolated from diameter data as defined by the Society of Radiologists in Ul trasound Consensus Conference, Radiology 2003; 229;340-346. NO STENOSIS (NORMAL) - Plaque = none; ICA PSV < 125 cm/sec; ICA/CCA PSV Ratio < 2.0 <50% STENOSIS - Plaque < 50%; ICA PSV < 125 cm/sec; ICA/CCA PSV Ratio < 2.0 50-69% STENOSIS - Plaque > 50%; ICA PSV = 125-230 cm/sec; ICA/CCA PSV Ratio = 2.0-4.0 >70% BUT <100% STENOSIS - Plaque > 50%; ICA PSV > 230 cm/sec; ICA/CCA PSV Ratio > 4.0 NEAR OCCLUSION - Plaque = visible lumen; ICA PSV = high/low/none; ICA/CCA PSV Ratio = variable TOTAL OCCLUSION - Plaque = no lumen; ICA PSV = none; ICA/CCA PSV Ratio = N/A Scribed by: Naa Mckenzie RDMS, BETZAIDA Scribed: 04/26/2021 12:15 PM I have reviewed the images, agree with this report, and edited this report as needed. Signer Name: Nilson Guardado MD Signed: 04/26/2021 2:05 PM Workstation Name: [id number]
--- NOTE | 2021-04-26 16:14 | Magnetic Resonance Report ---
MRI BRAIN WITHOUT CONTRAST INDICATION / CLINICAL INFORMATION: cva---right side weakness. TECHNIQUE: Multisequence, multiplanar images were obtained. COMPARISON: CT brain performed 04/25/2021 FINDINGS: CEREBRAL and CEREBELLAR HEMISPHERES: An approximate 10 x 13 mm focus of diffusion restriction is iden tified in the left superior amy extending to the lower aspect of the left cerebral amaris. No addition al areas of diffusion restriction are identified. Mild chronic microangiopathy in the periventricular white matter is noted. No chronic infarct. No evidence of mass or mass effect. No midline shift. N o acute hemorrhage. No extra-axial fluid collection. VENTRICLES: Normal in size and configuration for age. VISUALIZED ORBITS: No significant abnormality. VISUALIZED PARANASAL SINUSES: Mild chronic mucosal thickening in the left sphenoid sinus. The remaini ng visualized sinuses and mastoid air cells are clear. ADDITIONAL FINDINGS: None. IMPRESSION: 10 x 13 mm subacute ischemic infarct in the left amy as described. Mild nonspecific chronic white matter changes. Mild chronic left sphenoid sinusitis. Signer Name: Filiberto Moore Jr, MD Signed: 04/26/2021 4:10 PM Workstation Name: [id number]
--- NOTE | 2021-04-26 18:01 | Electrocardiograph Report ---
[facility] Test Date: 2021-04-25 Test Time: 20:42:49 Pat Name: GENESIS EASON Department: Room: A479 1 Gender: M [employer] Preparer: ALIA : 1950 Requested By: LUNA TAPIA Order Number: [id number] Reading MD: Benji Osorio Measurements Intervals [place] Rate: 76 P: 24 CA: 208 QRS: 51 QRSD: 93 T: 47 QT: 394 QTc: 443 Interpretive Statements Sinus rhythm Early repolarization ST changes No previous ECG available for comparison Electronically Signed On 04-26-2021 18:01:37 EDT by Benji Osorio
[2021-04-27] MEDS: INSULIN REGULAR, HUMAN 100 UNITS/1 ML SUB-Q SCH ×4 (08:52→21:58)
[2021-04-27] MEDS ORDERED: ASPIRIN EC 325 MG TAB PO SCH (08:54)
[2021-04-27] MEDS: oxyCODONE /ACETAMINOPHEN 5-325MG TAB PO PRN ×2 (09:10→15:10)
[2021-04-27] MEDS: CLOPIDOGREL 75 MG TAB PO SCH (09:23)
[2021-04-27] MEDS: ASPIRIN EC 81 MG TAB PO SCH (09:23)
--- NOTE | 2021-04-27 09:50 | Progress Note ---
Assessment and Plan Assessment and plan: Acute CVA/TIA Hypertension Diabetes mellitus type 2 DVT prophylaxis 04/26/2021. Pt with Right sided numbness and weakness consistent with ischemic stroke. Given time of onset > 4.5 hours ago he was not a candidate for IV tpa. F/U Echocardiogram, Carotid Duplex, MRI and Neuro consult. PT/OT/ST. 04/27/2021. MRI reveals 10 x 13 mm subacute ischemic infarct in the left amy. CTA remarkable for mild atherosclerotic changes in MCA and vertebral artery. Echocardiogram revealed EF of 50 to 60%. Continue aspirin and Lipitor per neuro recommendations. Continue PT/OT/ST. Physical therapy recommends outpatient PT. History Interval history: No new issues overnight Hospitalist Physical - Constitutional Vitals: Temp Pulse Resp BP Pulse Ox 98.7 F 81 18 142/79 96 04/27/21 07:57 04/27/21 07:57 04/27/21 07:57 04/27/21 07:57 04/27/21 07:57 General appearance: Present: mild distress - EENT Eyes: Present: PERRL, EOM intact ENT: hearing intact, clear oral mucosa, dentition normal - Neck Neck: Present: supple, normal ROM - Respiratory Respiratory effort: normal Respiratory: bilateral: CTA - Cardiovascular Rhythm: regular Heart Sounds: Present: S1 & S2. Absent: gallop, rub - Extremities Extremities: no ischemia, No edema, Full ROM - Abdominal General gastrointestinal: soft, non-tender, non-distended, normal bowel sounds - Integumentary Integumentary: Present: clear, warm, dry - Neurologic Neurologic: CNII-XII intact, moves all extremities HEART Score - HEART Score Troponin: Troponin T < 0.010 ng/mL (0.00-0.029) 04/25/21 15:40 Results - Labs CBC & Chem 7: 04/25/21 15:40 04/25/21 15:40 Labs: Laboratory Last Values WBC 5.4 K/mm3 (4.5-11.0) 04/25/21 15:40 RBC 4.43 M/mm3 (3.65-5.03) 04/25/21 15:40 Hgb 14.3 gm/dl (11.8-15.2) 04/25/21 15:40 Hct 41.2 % (35.5-45.6) 04/25/21 15:40 MCV 93 fl (84-94) 04/25/21 15:40 MCH 32 pg (28-32) 04/25/21 15:40 MCHC 35 % (32-34) H 04/25/21 15:40 RDW 13.4 % (13.2-15.2) 04/25/21 15:40 Plt Count 182 K/mm3 (140-440) 04/25/21 15:40 Lymph % (Auto) 33.0 % (13.4-35.0) 04/25/21 15:40 Parke % (Auto) 10.6 % (0.0-7.3) H 04/25/21 15:40 Eos % (Auto) 1.8 % (0.0-4.3) 04/25/21 15:40 Baso % (Auto) 0.5 % (0.0-1.8) 04/25/21 15:40 Lymph # (Auto) 1.8 K/mm3 (1.2-5.4) 04/25/21 15:40 Parke # (Auto) 0.6 K/mm3 (0.0-0.8) 04/25/21 15:40 Eos # (Auto) 0.1 K/mm3 (0.0-0.4) 04/25/21 15:40 Baso # (Auto) 0.0 K/mm3 (0.0-0.1) 04/25/21 15:40 Seg Neutrophils % 54.1 % (40.0-70.0) 04/25/21 15:40 Seg Neutrophils # 2.9 K/mm3 (1.8-7.7) 04/25/21 15:40 PT 12.1 Sec. (12.2-14.9) L 04/25/21 15:40 INR 0.85 (0.87-1.13) L 04/25/21 15:40 APTT 28.3 Sec. (24.2-36.6) 04/25/21 15:40 Thrombin Time 18.5 Sec. (15.1-19.6) 04/25/21 15:40 Sodium 135 mmol/L (137-145) L 04/25/21 15:40 Potassium 4.3 mmol/L (3.6-5.0) 04/25/21 15:40 Chloride 99.1 mmol/L (98-107) 04/25/21 15:40 Carbon Dioxide 27 mmol/L (22-30) 04/25/21 15:40 Anion Gap 13 mmol/L 04/25/21 15:40 BUN 11 mg/dL (9-20) 04/25/21 15:40 Creatinine 0.6 mg/dL (0.8-1.3) L 04/25/21 15:40 Estimated GFR > 60 ml/min 04/25/21 15:40 BUN/Creatinine Ratio 18 % 04/25/21 15:40 Glucose 424 mg/dL (75-100) H 04/25/21 15:40 POC Glucose 272 mg/dL (70-105) H 04/27/21 07:58 Calcium 8.9 mg/dL (8.4-10.2) 04/25/21 15:40 Magnesium 2.20 mg/dL (1.7-2.3) 04/25/21 15:40 Total Bilirubin 0.50 mg/dL (0.1-1.2) 04/25/21 15:40 AST 11 units/L (5-40) 04/25/21 15:40 ALT 15 units/L (7-56) 04/25/21 15:40 Alkaline Phosphatase 168 units/L (35-129) H 04/25/21 15:40 Total Creatine Kinase 91 units/L (55-170) 04/25/21 15:40 CK-MB (CK-2) 1.2 ng/mL (0.0-4.0) 04/25/21 15:40 CK-MB (CK-2) Rel Index 1.3 (0-4) 04/25/21 15:40 Troponin T < 0.010 ng/mL (0.00-0.029) 04/25/21 15:40 Total Protein 7.1 g/dL (6.3-8.2) 04/25/21 15:40 Albumin 4.1 g/dL (3.9-5) 04/25/21 15:40 Albumin/Globulin Ratio 1.4 % 04/25/21 15:40 Plasma/Serum Alcohol < 0.01 % (0-0.07) 04/25/21 15:40 Herrera/IV: Voiding Method Toilet Active Medications - Current Medications Current Medications: Generic Name Dose Route Start Last Admin Trade Name Freq PRN Reason Stop Dose Admin Acetaminophen 650 mg 04/25/21 20:00 Acetaminophen 325 Mg Tab PO Q4H PRN Pain, Mild (1-3) Aspirin 81 mg 04/27/21 10:00 04/27/21 09:23 Aspirin Ec 81 Mg Tab PO 81 mg QDAY LILLIAN Administration Atorvastatin Calcium 40 mg 04/25/21 22:00 04/26/21 21:36 Atorvastatin 40 Mg Tab PO 40 mg QHS LILLIAN Administration Bisacodyl 10 mg 04/25/21 20:00 Bisacodyl 10 Mg Rect Supp MD QDAY PRN Constipation Clopidogrel Bisulfate 75 mg 04/27/21 10:00 04/27/21 09:23 Clopidogrel 75 Mg Tab PO 75 mg QDAY LILLIAN Administration Insulin Human Regular 0 units 04/26/21 16:30 04/27/21 08:52 Insulin Regular, Human 100 Units/1 Ml SUB-Q 4 units ACHS LILLIAN Administration Protocol Magnesium Hydroxide 30 ml 04/25/21 20:00 Magnesium Hydroxide (Mom) Oral Liqd Udc PO Q4H PRN Constipation Metoclopramide HCl 10 mg 04/25/21 20:00 Metoclopramide 10 Mg Tab PO Q6H PRN Nausea And Vomiting Morphine Sulfate 1 mg 04/25/21 20:00 Morphine 4 Mg/1 Ml Inj IV Q8H PRN Pain , Severe (7-10) Ondansetron HCl 4 mg 04/25/21 20:00 Ondansetron 4 Mg/2 Ml Inj IV Q8H PRN Nausea And Vomiting Oxycodone/Acetaminophen 1 tab 04/25/21 20:00 04/27/21 09:10 Oxycodone /Acetaminophen 5-325mg Tab PO 1 tab Q6H PRN Administration Pain, Moderate (4-6) Promethazine HCl 25 mg 04/25/21 20:00 Promethazine 25 Mg Rect Supp MD Q6H PRN Nausea And Vomiting Sodium Chloride 10 ml 04/25/21 20:00 Sodium Chloride 0.9% 10 Ml Flush Syringe IV PRN PRN LINE FLUSH
--- NOTE | 2021-04-27 11:09 | Progress Note ---
Assessment and Plan Assessment and Plan - Patient Problems # CVA (cerebral vascular accident) -this is 70 ys old male with new onset right side weakness involve face arm and leg with possible slight dysmetria right arm and sensory impairment and or dysarthia with posibility of brain stem involvment can not be excluded -pt. is out of window for TPA and or thrombectomy -CT brain is unremarkable -CTA remarkable for mild astherosclerotic changes in MCA and vertebral a. -Initial NIH#3-- current NIh#7 -Echo EF#55-60% -A1C# pending? -LDL# pending? -Start on ASA 325 mg and Lipitor 40 mg -PT.ST evaluate -MRI is consistent with 10X13 mm left amy lacunar infarct - Plavix X 3 months 75 mg ,maintain ASA 81 mg Plus Lipitor 40 mg -Add eye patch during the day alternate right and left eye Q1-2 hours -consider Rehabilitation evaluation due to unsteady gait # HTN (hypertension) -Monitor blood pressure every shift, - permissive hypertension X24 hours # Diabetes -Consistent carbohydrate diet after patient has demonstrated ability to swallow, - sliding scale insulin, - Accu-Chek, -hypoglycemia protocol. # DVT prophylaxis -SCD to bilateral lower extremities while in bed, patient is ambulatory # Advance care planning -Disease education conducted, -care plan discussed, -diagnosis discussed, - prognosis discussed, patient is full code, - patient knowledges understanding and agree with care plan, 45 minutes. Will follow as needed Subjective Date of service: 04/27/21 Principal diagnosis: CVA pontine Interval history: pt. is complaining of intermittent diplopia more with left gaze and slight unsteady gait with right side weakness MRI brain is noted Plavix is started LDL is pending A1C is pending Objective - Vital Sign Vital Signs - 12hr 04/26/21 04/27/21 04/27/21 23:35 03:54 07:57 Temperature 97.8 F 97.4 F L 98.7 F Pulse Rate 73 70 81 Respiratory 16 16 18 Rate Blood Pressure 132/56 139/80 142/79 O2 Sat by Pulse 97 99 96 Oximetry 04/27/21 09:40 Temperature Pulse Rate Respiratory Rate Blood Pressure O2 Sat by Pulse 97 Oximetry - General Apperance Constitutional: uncomfortable - EENT EENT: PERRL, mucous membranes moist - Respiratory Respiratory: chest non-tender, lungs clear, rhonchi - Cardiovascular Cardiovascular: regular rate, normal S1, normal S2 Extremities: no peripheral edema bilat, no clubbing, cyanosis - Gastrointestinal Gastrointestinal: normoactive bowel sounds - Integumentary Integumentary: normal - Neurologic Cranial nerve examination: PERRL, EOMI, other (right facial droop and left side diplopia no clear EOMI , no visual field deficit , ) Speech examination: other (slight dysarthic) Detailed motor examination: other (he is with slight right pronator drift and dysmetria , gait slightly unsteady) - Laboratory Findings CBC and BMP: 04/25/21 15:40 04/25/21 15:40 Abnormal Lab Findings: Abnormal Labs 04/25/21 04/25/21 04/25/21 15:18 15:40 15:40 MCHC 35 H [place] % (Auto) 10.6 H PT 12.1 L INR 0.85 L Sodium Creatinine Glucose POC Glucose 401 H Alkaline Phosphatase 04/25/21 04/25/21 04/26/21 15:40 21:08 00:04 MCHC [place] % (Auto) PT INR Sodium 135 L Creatinine 0.6 L Glucose 424 H POC Glucose 227 H 212 H Alkaline Phosphatase 168 H 04/26/21 04/26/21 04/26/21 07:46 11:55 16:47 MCHC [place] % (Auto) PT INR Sodium Creatinine Glucose POC Glucose 281 H 313 H 318 H Alkaline Phosphatase 04/26/21 04/27/21 20:00 07:58 MCHC [place] % (Auto) PT INR Sodium Creatinine Glucose POC Glucose 264 H 272 H Alkaline Phosphatase
--- NOTE | 2021-04-28 08:04 | Discharge Summary ---
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 On exam, pal was found to have right side weakness involve arm and leg with facial droop as well as sensory impairment and slurrend speech. Patient was admitted with diagnosis of acute CVA with right hemiparesis. CT of the brain was found to be unremarkable. Patient was started on aspirin and Lipitor. Neurology was consulted and recommended CTA of the head and neck. CTA of the head and neck was remarkable for mild astherosclerotic changes in both MCA and distal vertebral artery. Patient was not a candidate for TPA or thrombectomy because patient presented outside of the window. Patient had further evaluation with MRI which was consistent with 10X13 mm left amy lacunar infarct. Patient's right-sided weakness improved after hospitalization new to baseline of normal function. Physical therapy evaluated the patient and felt patient could be discharged with outpatient physical therapy. Neurology recommended Plavix x3 months and aspirin 81 mg plus Lipitor 40 mg. Eyepatch during the day alternate right and left every 1-2 hours. Follow-up with neurology as an outpatient. Dedicated discharge time 32 minutes. Disposition: DC-30 STILL A PATIENT Final Discharge Diagnosis (Prints w/discharge instructions): Acute CVA, accelerated hypertension and diabetes mellitus type 2 Core Measure Documentation - Palliative Care Palliative Care/ Comfort Measures: Not Applicable - Core Measures Any of the following diagnoses?: stroke - Stroke Discharge Requirements Statin for LDL = or >70 mg/dl on DC: Yes Anticoag for atrial fib/atrial flutter: Not Applicable Antithrombotic for ischemic stroke: Yes Exam - Constitutional Vitals: Temp Pulse Resp BP Pulse Ox 97.8 F 71 20 141/77 95 04/28/21 05:26 04/28/21 05:26 04/28/21 05:26 04/28/21 05:26 04/28/21 05:26 General appearance: Present: no acute distress, well-nourished - EENT Eyes: Present: PERRL ENT: hearing intact, clear oral mucosa - Neck Neck: Present: supple, normal ROM - Respiratory Respiratory effort: normal Respiratory: bilateral: CTA - Cardiovascular Heart Sounds: Present: S1 & S2. Absent: rub, click - Extremities Extremities: pulses symmetrical, No edema Peripheral Pulses: within normal limits - Abdominal General gastrointestinal: Present: soft, non-tender, non-distended, normal bowel sounds Male genitourinary: Present: normal - Integumentary Integumentary: Present: clear, warm, dry - Musculoskeletal Musculoskeletal: gait normal, strength equal bilaterally - Psychiatric Psychiatric: appropriate mood/affect, intact judgment & insight - Neurologic Neurologic: CNII-XII intact, moves all extremities Plan Activity: advance as tolerated Weight Bearing Status: Weight Bear as Tolerated Diet: diabetic Special Instructions: physical therapy Additional Instructions: - Plavix X 3 months 75 mg ,maintain ASA 81 mg Plus Lipitor 40 mg. -Add eye patch during the day alternate right and left eye Q1-2 hours Follow up with: PRIMARY CARE, [Primary Care Provider] - 7 Days Prescriptions: Aspirin EC [Halfprin EC] 81 mg PO QDAY #30 tablet AtorvaSTATin [Lipitor] 40 mg PO QHS #30 tablet Clopidogrel [Plavix] 75 mg PO QDAY #30 tablet
[2021-04-28 08:37] VITALS: BP 117/59
[2021-04-28] MEDS: CLOPIDOGREL 75 MG TAB PO SCH (09:14)
[2021-04-28] MEDS: ASPIRIN EC 81 MG TAB PO SCH (09:14)
[2021-04-28] MEDS: INSULIN REGULAR, HUMAN 100 UNITS/1 ML SUB-Q SCH (09:34)
== END 2021-04-28 11:24 | disposition home or self-care (01) | DRG 65 ==
LOC: ED 15:12 → 4A 18:53 → OBSVTOIN 04-26 14:16
PROVIDERS: ADMIT Internal Medicine; ATTEND Hospitalist
DX: I63.9 Cerebral infarction, unspecified (principal); G81.91 Hemiplegia, unspecified affecting right dominant side; I10 Essential (primary) hypertension; R29.703 NIHSS score 3; E11.9 Type 2 diabetes mellitus without complications; Z79.4 Long term (current) use of insulin; Z82.49 Family history of ischemic heart disease and other diseases of the circulatory system
CPT/HCPCS: 36415; 70450; 70496; 70498; 70551; 80053; 80320; 82550; 82553; 82962; 83735; 84484; 85025; 85610; 85670; 85730; 93005; 93306; 93880; 96374; G0378; A9270-GY; G0480; J1815; Q9967